=== PATIENT | female | born 1970 | race American Indian/Alaskan Native ===

== ENCOUNTER 2020-03-06 09:54 | Outpatient (CLI) | payer OTHER, SELFPAY ==
--- NOTE | 2020-03-06 10:09 | MM_ITS ---
WS: [id number] DIAGNOSTIC BILATERAL DIGITAL MAMMOGRAM WITH CAD HISTORY: 6 MO F/U RT BREAST CALCIFICATION COMPARISON: 08/18/2019, 02/23/2019, 08/17/2018, 02/17/2018 and 06/07/2017 TECHNIQUE: Bilateral craniocaudad, mediolateral oblique, and mediolateral views are submitted. Magnif ication views RIGHT CC and MLO. Computer aided detection utilized. Breast composition: The breasts are extremely dense, which lowers the sensitivity of mammography. Num erous calcifications are noted within each breast. Calcifications in the inferior medial RIGHT breast undergoing diagnostic imaging over several years. These calcifications although clustered are very s imilar in appearance to 2017. No increase in number or size of the calcifications and no soft tissue mass. There are additional asymmetries and nodules throughout both breasts which are stable. MM/[place] [id number] IMPRESSION: BI-RADS: 2-Benign FOLLOW UP: 1 Year Follow-up Calcifications in the inferomedial RIGHT breast have been stable over several y ears. Patient to return to annual screening mammogram. On the annual mammogram if these calcifications appear to increase in size or number additional imaging will be recommended at that time.
== END 2020-03-06 09:55 | disposition home or self-care (01) ==
LOC: RADSHAW 09:59
PROVIDERS: PCP Family Medicine; Visit Provider Family Medicine
DX: R92.1 Mammographic calcification found on diagnostic imaging of breast (principal)
CPT/HCPCS: 77066

== ENCOUNTER → 2020-09-08 13:59 | Outpatient (BNVA) | payer OTHER, SELFPAY | PROVIDERS: PCP Family Medicine; Visit Provider Family Medicine | DX: Z20.828 Contact with and (suspected) exposure to other viral communicable diseases (principal) | CPT/HCPCS: 87635 ==

== ENCOUNTER → 2021-02-05 10:50 | Outpatient (BNVA) | payer OTHER, SELFPAY | PROVIDERS: PCP Family Medicine; Visit Provider Obstetrics & Gynecology | DX: Z12.4 Encounter for screening for malignant neoplasm of cervix (principal); N81.4 Uterovaginal prolapse, unspecified | CPT/HCPCS: 88175 ==

== ENCOUNTER 2021-04-23 13:08 | Outpatient (CLI) | payer OTHER, SELFPAY ==
--- NOTE | 2021-04-23 13:17 | MM_ITS ---
WS: [id number] BILATERAL DIGITAL SCREENING MAMMOGRAPHY WITH CAD CLINICAL INFORMATION: SCREENING HISTORY: Screening mammogram. No current complaints. COMPARISON: March 06, 2020 TECHNIQUE: Bilateral CC and MLO views. FINDINGS: The breasts are composed of heterogeneous fibroglandular density tissue, which can limit the detectio n of small underlying mass lesions. Punctate and lucent centered calcifications. Clustered calcificat ions. Biopsy marker right breast. No suspicious mass, asymmetry, calcifications, or architectural dis tortion. No evidence of malignancy. MM/[place] [id number] IMPRESSION: BI-RADS: 2-Benign FOLLOW UP: 1 Year Follow-up Recommend return to annual screening mammography.
== END 2021-04-23 13:09 | disposition home or self-care (01) ==
LOC: RADSHAW 13:10
PROVIDERS: PCP Family Medicine; Visit Provider Family Medicine
DX: Z12.31 Encounter for screening mammogram for malignant neoplasm of breast (principal)
CPT/HCPCS: 77067

== ENCOUNTER 2021-07-29 11:00 | Outpatient (CLI) | payer OTHER, SELFPAY ==
--- NOTE | 2021-07-29 | CT_ITS ---
WS: [id number] CT ABDOMEN AND PELVIS WITH CONTRAST HISTORY: LLQ PAIN TECHNIQUE: Imaging performed of the abdomen and pelvis with IV contrast. Single phase imaging of the abdomen. Coronal and sagittal reformats are submitted. All CT scans at [facility] use at thad st one of these dose optimization techniques: automated exposure control; mA and/or kV adjustment per patient size (includes targeted exams where dose is matched to clinical indication); or iterative re construction. IV CONTRAST: Omnipaque 300; 95 mL IV. Oral contrast: Yes. DLP: 1090.4 mGycm COMPARISON: 03/20/2019 Lower thorax: Lung bases are clear. Heart is normal size. Moderate-sized hiatal hernia. Liver/biliary system: Normal size liver. No bile duct dilatation. 8 mm low-attenuation nodule in the inferior RIGHT hepatic lobe is stable. Additional similar hypoechoic nodule in the LEFT lobe is proba sima a small cyst also. Gallbladder: Status post cholecystectomy. Pancreas: Normal size pancreas and pancreatic duct. No adjacent inflammation. Spleen: Normal size spleen. No mass or infarct. Adrenal glands: Normal. Right kidney: Normal. Left kidney: Normal. Aorta: Normal. Lymphadenopathy: None. Free fluid: None. GI tract: Status post gastric bypass. Multiple surgical sutures are noted within the LEFT upper abdom en. Prior appendectomy. Diffuse moderate fecal retention. No mucosal thickening or edema. No obstruct ion. Abdominal wall: Unremarkable abdominal wall. No hernia. Pelvis: Prior RIGHT oophorectomy. Uterus is midline. LEFT ovary is small caliber very difficult to vi sualize. No fat stranding or adenopathy. Bones: Unremarkable. CT/CT abdomen pelvis w con* [id number] IMPRESSION: 1. No acute abdominal or pelvic abnormalities are identified. 2. Prior appendectomy and RIGHT oophorectomy. 3. Prior gastric bypass. 4. Diffuse moderate constipation and fecal retention. 5. No free fluid or free air.
[2021-07-29] MEDS: iohexol 300 mg/mL 100 mL Btl IV (13:06)
== END 2021-07-29 11:01 | disposition home or self-care (01) ==
PROVIDERS: PCP Family Medicine; Visit Provider Family Medicine
DX: Q42.8 Congenital absence, atresia and stenosis of other parts of large intestine (principal); Z90.721 Acquired absence of ovaries, unilateral; Z98.84 Bariatric surgery status; K59.00 Constipation, unspecified
CPT/HCPCS: 74177; Q9967

== ENCOUNTER → 2021-08-28 16:35 | Outpatient (BNVA) | payer OTHER, SELFPAY | PROVIDERS: PCP Family Medicine; Visit Provider Obstetrics & Gynecology | DX: Z01.818 Encounter for other preprocedural examination (principal); Z20.822 Contact with and (suspected) exposure to COVID-19; N81.4 Uterovaginal prolapse, unspecified; N39.3 Stress incontinence (female) (male) | CPT/HCPCS: 87635 ==

== ENCOUNTER 2021-09-02 08:57 | Observation (INO) | payer OTHER, SELFPAY ==
[2021-09-01 13:14] VITALS: BMI 26.1
[2021-09-02] VITALS (20 sets, daily range): BP systolic 86–118; BP diastolic 53–74; PULSE 53–110; RESP 15–22; TEMP 36.3–36.9; O2SAT 96–100; BMI 24.5
[2021-09-02] MEDS: phenazopyridine 100 mg Tablet 200 MG PO (06:46)
[2021-09-02] MEDS: CELEcoxib 200 mg Capsule 400 MG PO (06:46)
[2021-09-02] MEDS: gabapentin 300 mg Capsule PO (06:46)
[2021-09-02] MEDS: ketorolac 30 mg/mL INJ IVP ×3 (06:47→21:22)
[2021-09-02] MEDS: acetaminophen 1,000 MG/100 ML PIGGYBACK 400 MG IV (06:49)
[2021-09-02] MEDS: sodium chloride 0.9% 1,000 ML 30 ML IV (06:50)
[2021-09-02 06:53] LABS: Basophils % 1.3 %; Eosinophils # 0.2 10^3/uL (0.0-0.8); Eosinophils % 5.5 %; Hematocrit 36.8 % (37.0-47.0); Hemoglobin 12.5 g/dL (11.5-15.3); Lymphocytes # 1.4 10^3/uL (0.8-4.8); Lymphocytes % 45.3 %; Mean Corpuscular Hemoglobin 33.2 pg (28.0-34.0); Mean Corpuscular Volume 97.6 fl (81-99); Mean Platelet Volume 9.4 fL (7.4-10.4); Monocytes # 0.3 10^3/uL (0.2-0.9); Monocytes % 8.4 %; Neutrophils # 1.22 10^3/uL (1.8-7.7); Neutrophils % 39.5 %; Nucleated Red Blood Cells % 0 %; Platelet Count 233 10^3/cmm (130-400); Red Blood Count 3.77 10^6/uL (4.1-5.3); Red Cell Distribution Width 12.2 % (12.1-15.1); White Blood Count 3.1 10^3/uL (4.0-10.0)
[2021-09-02] MEDS: scopolamine 1.5 Patch 1 PATCH TRANSDERMA (07:00)
--- NOTE | 2021-09-02 07:00 | P.ANESASSM_ITS ---
Pre-Anesthetic Assessment Pre-Anesthetic Assessment: Height/Weight: Height 1.68 m Weight 73.482 kg Temp Pulse Resp BP Pulse Ox 98.4 F 70 16 106/74 99 09/02/21 06:26 09/02/21 06:26 09/02/21 06:26 09/02/21 06:26 09/02/21 06:26 Preop Diagnosis: uterine prolapse, stress incontinence Proposed Procedure: Operation Date: 09/02/21 07:00 Proposed Procedures p Laparoscopic Assist Vaginal Hysterectomy 55477 N81.4(Not Applicable) - Erin Hernandez MD s Sling(Not Applicable) - Erin Hernandez MD s Laparoscopic Oophorectomy(Left) - Erin Hernandez MD s Possible Anterior Repair(Not Applicable) - Erin Hernandez MD s Possible Posterior Repair(Not Applicable) - Erin Hernandez MD Was Beta Reinaldo taken within 24 hours: N/A Was Clonidine taken within 24 hours: N/A Last intake: Intake Last Liquid Date 09/01/21 Last Liquid Time 23:00 Last Solid Date 09/01/21 Last Solid Time 22:30 Social: Social History: No alcohol and No tobacco Exam: Pre-Anes Outpt Exam: alert, oriented x 3, clear to auscultation bilaterally and regular rate & rhythm Airway: Submandibular: WNL Cervical ROM: WNL MP: 1 Dentition: Full History/ROS: No significant history except as noted Pulmonary: Pulmonary: None reported CV/HEM: CV/HEM: None reported : Comments: Prolapse Hepatic: Hepatic: None reported GI: GI: GERD Metabolic: Comments: s/p gastric bypass Musc/skel: Musc/skel: None reported Neuropsych: Comments: Migraine Anesthetic Plan: ASA status: 2 Anesthesia: Anesthesia Evaluation and General Risk of > 500 ml blood loss (7ml/kg in children): No Meds/Allergies Current Medications: Current Medications Generic Name Dose Route Start Last Admin Trade Name Freq PRN Reason Stop Dose Admin Sodium Chloride 1,000 mls @ 30 ml s/hr 09/02/21 06:30 09/02/21 06:50 Sodium Chloride 0.9% IV 09/03/21 06:29 30 mls/hr .Q24H EITAN Administration PFSH Anesthesia PFSH: Medical History History of anemia History of blood clots History of gastroesophageal reflux (GERD) History of migraine headaches Surgical History History of appendectomy History of cholecystectomy History of gastric bypass History of oophorectomy, unilateral right, 2019 History of unilateral salpingectomy left, 2019 Family History Grandmother Cancer Paternal--breast cancer and possible uterine cancer Grandfather Myocardial infarct Brother Afib Hypercholesteremia Family/Other Cancer Maternal Aunt stomach cancer Family/Other Cancer Sister Diabetes Hypercholesteremia Thyroid disease hyperthyroidism Father Hypercholesteremia Diabetes borderline diabetic--controlled through diet Mother Stroke Denies family history of Ovarian cyst Clotting disorder Chronic kidney disease (CKD) Bleeding disorder Hypertension Data Anesthesia CBC & Chem 7: 09/02/21 06:36 09/02/21 06:36 Other Labs: Laboratory Results - last 48 hr 09/02/21 06:36 WBC 3.1 L RBC 3.77 L Hgb 12.5 Hct 36.8 L MCV 97.6 MCH 33.2 MCHC 34.0 RDW 12.2 Plt Count 233 MPV 9.4 Neut % (Auto) 39.5 Lymph % (Auto) 45.3 [place] % (Auto) 8.4 Eos % (Auto) 5.5 Baso % (Auto) 1.3 Neut # (Auto) 1.22 L Lymph # (Auto) 1.4 [place] # (Auto) 0.3 Eos # (Auto) 0.2 Baso # (Auto) 0.0 Nucleated RBC % (auto) 0 Nucleated RBCs # 0.0 Cardiac Studies: No Data to Display
--- NOTE | 2021-09-02 07:01 | W.PM.OPSUD ---
Surgery/Procedure H&P Update DATE OF PROCEDURE: September 02, 2021 DATE H&P PERFORMED: 08/28/21 H&P UPDATE INFORMATION: I have reviewed H&P completed within last 30 days, I have examined patient prior to procedure and No changes to prior documentation PREOP DIAGNOSIS: uterine prolapse, stress incontinence PLANNED PROCEDURE: Operation Date: 09/02/21 07:00 Proposed Procedures p Laparoscopic Assist Vaginal Hysterectomy 79635 N81.4(Not Applicable) - Erin Hernandez MD s Sling(Not Applicable) - Erin Hernandez MD s Laparoscopic Oophorectomy(Left) - Erin Hernandez MD s Possible Anterior Repair(Not Applicable) - Erin Hernandez MD s Possible Posterior Repair(Not Applicable) - Erin Hernandez MD Related Problem List Diagnoses (1) Stress incontinence: (2) Cystocele: (3) Uterine prolapse:
[2021-09-02 07:11] LABS: Anion Gap 15.7 (5-19); Blood Urea Nitrogen 12 mg/dL (6-20); Calcium 8.8 mg/dL (8.5-10.5); Carbon Dioxide 25 mmol/L (22-29); Chloride 105 mmol/L (98-107); Glucose 95 mg/dL (65-115); Osmolality Calculated 294 mOsm/kg (285-295); Potassium 3.7 mmol/L (3.5-5.1); Sodium 142 mmol/L (136-145)
[2021-09-02] MEDS: vasopressin 20 unit/mL INJ INJECTION (08:44)
--- NOTE | 2021-09-02 09:07 | PM.OP ---
Operative Report Date of procedure: September 02, 2021 Pre-op Diagnosis: uterine prolapse, stress incontinence Post-op diagnosis: same Post-op Diagnosis: no stress incontinence noted Procedure Done: laparoscopic assisted vaginal hysterectomy with left oophorectomy and cystoscopy Specimens removed/disposition: uterus and left ovary to pathology Anesthesia: General Estimated blood loss (mL): 25 IV fluids (mL): 1,400 Urine output (mL): 200 Complications: none Findings: after hysterectomy. No cystocele or rectocele noted. bladder filled with water from cystoscopy and no leak with pressure. Condition: stable Disposition: floor Procedure: The patient was taken to the operating room where general anesthesia was administered and found to be adequate. She was prepped and draped in the normal sterile fashion in the dorsal lithotomy position in [facility]. A Wong catheter was placed. A weighted speculum was placed into the vagina and the anterior lip of the cervix was grasped with a single tooth tenaculum. The Zumi uterine manipulator could not be placed due to a previous endometrial ablation. A sponge stick was placed instead. The gloves were changed and attention was turned to the abdomen. A 5 mm infraumbilical incision was made. Using a 5 mm port with the camera, the port was placed into the abdomen. The abdomen was insufflated. Two low, lateral 5 mm ports were placed on the left and right under direct visualization from the camera. The uterus was elevated. Using the laparoscopic cautery, The infundibulo pelvic ligament on the left as well as the round ligaments bilaterally were ligated. Attention was then turned to the vaginal portion of the procedure. The weighted speculum was placed into the vagina. The zumi manipulator was removed. The single tooth tenaculum was removed and replaced with the louis's tenaculum. 10 mL of dilute Pitressin was injected at the vesicovaginal junction. A circumferential incision was made at the vesicovaginal junction and the vaginal mucosa reflected cephalad. The posterior peritoneum was entered sharply with the Metzenbaum scissors and the long weighted speculum replaced. Using the Mario clamps the uterosacral ligaments were clamped cut and suture-ligated. The anterior peritoneum was entered sharply with the metzenbaum scissors. Then sequentially the uterine arteries and cardinal ligaments were clamped cut and suture-ligated. A single-tooth tenaculum was used to deliver the uterus. The remaining segement of the utero-ovarian ligaments were clamped cut and suture-ligated bilaterally and the specimen was removed. There was good hemostasis with only mild bleeding from the cuff. The peritoneum was closed with a pursestring using 2-0 Vicryl. The vaginal cuff was closed with 0 Vicryl in a running locked pattern incorporating the uterosacral ligaments into the lateral aspects of the vaginal cuff. The Wong catheter was removed and the cystoscope advanced into the bladder. The patient was given pyridium and bilateral spill was noted. There were no injuries or deficits noted in the bladder. The cystoscope was removed and the Wong was replaced. Vaginal packing was placed for good hemostasis. The patient tolerated the procedure well. Sponge lap and needle counts were correct x3. She was taken to the recovery room in stable condition.
--- NOTE | 2021-09-02 09:22 | SUR.PHASEI ---
PT SLEEPS QUIETLY UNLESS AWAKENED PT C/O OF (CRAMPING) TO LOWER ABD PT INFORMED OF VAGINAL PACKING AND RONQUILLO CATHETER, WARM BLANKET TO ABD FOR COMFORT, PT QUICKLY BACK TO SLEEP VSS IV PATENT MONITOR SR, PT ABD SOFT WITH 3 SITES D/I RONQUILLO TO DD WITH STATLOCK TO RT THIGH, DK YELLOW URINE TO TUBING AND BAG.
--- NOTE | 2021-09-02 09:50 | PC.NURSE ---
Patient brought to OB floor by OR staff via bed.
[2021-09-02] MEDS: dextrose 5%-lactated ringers 1,000 ML 125 ML IV ×2 (10:01→18:09)
--- NOTE | 2021-09-02 10:05 | ANE.PACU2 ---
Inpatient post-anesthesia follow up: Airway intact: Yes Vital signs: Temperature 97.6 F Pulse Rate 73 Respiratory Rate 16 Blood Pressure 106/74 Pulse Oximetry 100 Oxygen Delivery Me thod Room Air Oxygen Flow Rate Fraction of Inspir ed Oxygen Hydration adequate: Yes Nausea and vomiting: No Pain level: 3 Mental status: Baseline
[2021-09-02] MEDS: HYDROmorphone 1 mg/mL INJ 1 mL 0.5 MG IVP (10:27)
[2021-09-02 11:31] LABS: Hematocrit 36.5 % (37.0-47.0); Hemoglobin 12.1 g/dL (11.5-15.3); Mean Corpuscular HGB Conc 33.2 g/dL (30.0-36.0); Mean Corpuscular Hemoglobin 33.5 pg (28.0-34.0); Mean Corpuscular Volume 101.1 fl (81-99); Mean Platelet Volume 9.3 fL (7.4-10.4); Platelet Count 188 10^3/cmm (130-400); Red Blood Count 3.61 10^6/uL (4.1-5.3); Red Cell Distribution Width 12.3 % (12.1-15.1)
[2021-09-02] MEDS: HYDROcodone-acetaminophen 5-325 mg Tablet PO ×2 (12:00→18:04)
[2021-09-02] MEDS: docusate sodium 100 mg Capsule PO (18:05)
[2021-09-03] MEDS: HYDROcodone-acetaminophen 5-325 mg Tablet PO ×2 (00:23→11:10)
[2021-09-03] MEDS: dextrose 5%-lactated ringers 1,000 ML 125 ML IV (02:16)
[2021-09-03 04:13] VITALS: RESP 16; O2SAT 98
[2021-09-03] MEDS: HYDROmorphone 1 mg/mL INJ 1 mL 1.5 MG IVP (04:13)
[2021-09-03 04:20] VITALS: BP 83/50; PULSE 64; RESP 17; TEMP 36.8; O2SAT 94
[2021-09-03 04:29] LABS: Hematocrit 32.2 % (37.0-47.0); Hemoglobin 10.7 g/dL (11.5-15.3); Mean Corpuscular HGB Conc 33.2 g/dL (30.0-36.0); Mean Corpuscular Hemoglobin 32.9 pg (28.0-34.0); Mean Corpuscular Volume 99.1 fl (81-99); Mean Platelet Volume 9.2 fL (7.4-10.4); Platelet Count 160 10^3/cmm (130-400); Red Blood Count 3.25 10^6/uL (4.1-5.3); Red Cell Distribution Width 12.4 % (12.1-15.1)
[2021-09-03 06:00] LABS: Anion Gap 12.9 (5-19); Blood Urea Nitrogen 4 mg/dL (6-20); Carbon Dioxide 23 mmol/L (22-29); Chloride 108 mmol/L (98-107); Creatinine Clr Calc Pharmacy 140.3331; Glomerular Filtration Rate 129.6 mL/min (90-130); Glucose 129 mg/dL (65-115); Osmolality Calculated 289 mOsm/kg (285-295); Potassium 3.9 mmol/L (3.5-5.1); Sodium 140 mmol/L (136-145)
--- NOTE | 2021-09-03 09:27 | P.DS_ITS ---
Discharge Providers Date of Admission: 09/02/21 08:57 Date of Discharge: September 03, 2021 Attending Provider at Admission: Erin Hernandez MD Attending Provider at Discharge: Erin Hernandez MD Primary Care Provider: Arnold Beckham MD Diagnoses at Discharge Discharge Diagnosis (1) Stress incontinence: Status: Acute (2) Cystocele: Status: Acute (3) Uterine prolapse: Status: Acute Reason for Visit Reason for Visit: Uterine prolapse Hospital Course Hospital Course The patient was admitted for surgery. She did well postoperatively and was ready for discharge on day #1 Physical Exam Narrative: EXAM NARRATIVE: The patient is doing well this morning. No concerns. Packing has been removed Const: COMMON NORMALS: no acute distress, average body habitus, patient oriented x3, no limitations, healthy appearing, alert and well nourished GENERAL APPEARANCE: cooperative, comfortable and well kempt ORIENTATION/CONSCIOUSNESS: Yes awake, Yes oriented to person, Yes oriented to place and Yes oriented to time Resp: COMMON NORMALS: normal respiratory effort EFFORT & INSPECTION: Yes able to speak in complete sentences GI: COMMON NORMALS: Soft to palpation and non-tender PALPATION: Yes Soft to palpation : COMMON NORMALS: Yes normal external appearance and Yes normal appearance of the vagina Extremity: COMMON NORMALS: no calf tenderness Neuro: COMMON NORMALS: patient oriented x3 SENSORIUM/ORIENTATION: Yes alert, Yes oriented to person, Yes oriented to place and Yes oriented to time Psych: COMMON NORMALS: mental status grossly normal, Normal thought process present, cooperative, normal affect and speech normal APPEARANCE: Yes grossly normal and Yes well kempt ATTITUDE: Yes calm and Yes engaged ACTIVITY/MOTOR BEHAVIOR: Yes appropriate eye contact SPEECH: Yes normal speech THOUGHT PROCESS: Normal thought process present Urinary Catheter Management^: Wong: Cath Placed During This Visit: yes, but has since been removed by the nurse Reason for Continuing Indwelling Catheter: Perioperative Use in Selected Surgeries Urinary Catheter Date of Insertion: 09/02/21 Urinary Catheter Time of Insertion: 07:30 Date Urinary Catheter Removed: 09/03/21 Time Urinary Catheter Discontinued: 06:15 Discharge Data Data Completed and Pending: Pending at discharge Category Date Time Status ES surgery / GI i mages Routine Exams 09/02/21 06:39 Taken Urine Culture Rou brian Lab 09/02/21 11:20 Results Pathology: Surgic al [PTH] Routine Pth 09/02/21 08:58 Received Labs from last 24 hours 09/03/21 09/03/21 09/02/21 04:30 04:10 11:20 WBC 5.0 8.0 RBC 3.25 L 3.61 L Hgb 10.7 L 12.1 Hct 32.2 L 36.5 L MCV 99.1 H 101.1 H MCH 32.9 33.5 MCHC 33.2 33.2 RDW 12.4 12.3 Plt Count 160 188 MPV 9.2 9.3 Sodium 140 Potassium 3.9 Chloride 108 H Carbon Dioxide 23 Anion Gap 12.9 BUN 4 L Creatinine 0.5 GFR Calculation 129.6 Glucose 129 H Calculated Osmolal ity 289 Calcium 8.0 L Vitals: Last Vital Signs Temp 98.2 F 09/03/21 04:20 Pulse 64 09/03/21 04:20 Resp 17 09/03/21 04:20 BP 83/50 09/03/21 04:20 Pulse Ox 94 09/03/21 04:20 Discharge Plan Discharge Patient Disposition: Home Condition: Stable Prescriptions: New docusate sodium 100 mg Capsule 100 mg PO BID Qty: 60 RF: 0 ibuprofen 800 mg Tablet 800 mg PO Q8H Qty: 30 RF: 0 hydrocodone-acetaminophen 5-325 mg Tablet 2 tab PO Q6H PRN (Reason: Moderate To Severe Pain) Qty: 30 RF: 0 Continued hydroxyzine HCl 25 mg tablet 25 mg PO BID PRN (Reason: Allergy Symptoms) RF: 0 Zyrtec 10 mg capsule 10 mg PO DAILY PRN (Reason: Runny Nose) RF: 0 magnesium 30 mg tablet 30 mg PO DAILY RF: 0 pantoprazole 40 mg tablet,delayed release (DR/EC) 40 mg PO DAILY RF: 0 calcium carbonate [Calcium 500] 500 mg calcium (1,250 mg) tablet 1,000 mg PO DAILY RF: 0 ascorbate calcium (vitamin C) 500 mg tablet 500 mg PO DAILY RF: 0 polyethylene glycol 3350 [Miralax] 17 gram/dose powder 17 g PO DAILY RF: 0 clobetasol 0.05 % ointment 1 applic topical BID 14 Days Qty: 60 RF: 3 triamcinolone acetonide 0.1 % ointment 1 applic topical BID Qty: 80 RF: 2 Discharge Orders: Discharge Order (Routine); Ordered 09/03/21 Ordered By: Erin Hernandez Patient Instructions: Opioid Safety Discharge Attestations Time Spent in Discharge Care*: less than 30 min Quality Metrics Clinical Quality Measures During this hospital stay, did patient experience: None Coding Level of Care Code Acute Chg [facility] note Diagnoses Stress incontinence N39.3 Cystocele Uterine prolapse N81.4
[2021-09-03] MEDS: pantoprazole DR 40 mg Tablet PO (09:57)
[2021-09-03] MEDS: docusate sodium 100 mg Capsule PO (09:58)
[2021-09-03] MEDS: ibuprofen 800 mg tablet PO (09:58)
[2021-09-03 11:18] VITALS: PULSE 79; RESP 16; TEMP 36.8
[2021-09-03 12:00] VITALS: BP 108/64; PULSE 79; RESP 16; TEMP 36.8; O2SAT 97
== END 2021-09-03 12:35 | disposition home or self-care (01) ==
LOC: OBGYN 08:57
PROVIDERS: Admitting Provider Obstetrics & Gynecology; PCP Family Medicine; Visit Provider Obstetrics & Gynecology
PROC: 0UT9FZZ Resection of Uterus, Via Natural or Artificial Opening With Percutaneous Endoscopic Assistance (ICD-10-PCS; CPT 58552; principal; 2021-09-02 07:00)
PROC: (CPT 58661; 2021-09-02 07:00)
DX: N81.4 Uterovaginal prolapse, unspecified (principal); N39.3 Stress incontinence (female) (male); K21.9 Gastro-esophageal reflux disease without esophagitis; Z98.84 Bariatric surgery status
CPT/HCPCS: 58552; 36415; 80048; 85025; 85027; 86850; 86900; 87086; 88307; G0378; J0690; J1100; J1170; J1200; J1885; J2250; J2270; J2405; J2704; J2710; J3010; J3490; J7030

== ENCOUNTER → 2021-10-13 09:54 | Outpatient (BNVA) | payer OTHER, SELFPAY | PROVIDERS: PCP Family Medicine; Visit Provider Obstetrics & Gynecology | DX: N89.8 Other specified noninflammatory disorders of vagina (principal); Z98.890 Other specified postprocedural states | CPT/HCPCS: 87481; 87512; 87798; 87799 ==

== ENCOUNTER 2022-06-12 14:51 | Outpatient (CLI) | payer OTHER, SELFPAY ==
--- NOTE | 2022-06-12 15:02 | MM_ITS ---
WS: [id number] BILATERAL SCREENING DIGITAL TOMOSYNTHESIS MAMMOGRAM WITH CAD HISTORY: SCREENING COMPARISON: 04/23/2021 and 03/06/2020 Bilateral CC and MLO views with tomosynthesis and synthetic mammography submitted. Computer aided det ection analyzed. Breast composition: The breasts are heterogeneously dense, which may obscure small masses. No suspici ous masses, microcalcifications or architectural distortion. Scattered asymmetries and calcifications within each breast. Stable over several prior years. MM/[place] [id number] IMPRESSION: BI-RADS: 2-Benign FOLLOW UP: 1 Year Follow-up
== END 2022-06-12 14:52 | disposition home or self-care (01) ==
LOC: RAD 14:54
PROVIDERS: PCP Family Medicine; Visit Provider Family Medicine
DX: Z12.31 Encounter for screening mammogram for malignant neoplasm of breast (principal)
CPT/HCPCS: 77063; 77067

== ENCOUNTER 2022-08-12 09:30 | Outpatient (RCR) | payer OTHER, SELFPAY ==
[2022-08-12] MEDS: sodium chloride 0.9% 1,000 ML 500 ML IV (10:35)
== END 2022-08-12 23:59 | disposition home or self-care (01) ==
LOC: ONCMED 09:30
PROVIDERS: PCP Family Medicine; Visit Provider Family Medicine
DX: D70.9 Neutropenia, unspecified (principal); M54.50 Low back pain, unspecified; Z79.899 Other long term (current) drug therapy
CPT/HCPCS: 96365; 96366; 97110; 97161; J7030

== ENCOUNTER 2023-08-09 07:45 | Outpatient (CLI) | payer OTHER, SELFPAY ==
--- NOTE | 2023-08-09 07:57 | MM_ITS ---
WS: [id number] SCREENING DIGITAL BREAST TOMOSYNTHESIS MAMMOGRAM WITH CAD HISTORY: SCREENING COMPARISON: 06/12/2022 and 04/23/2021 Bilateral CC and MLO with tomosynthesis and synthetic mammography submitted. Computer aided detection analyzed. Breast composition: The breasts are heterogeneously dense, which may obscure small masses. Small clus ter of calcifications in the lateral LEFT breast near 3:00. These calcifications are posterior and of slightly increased in size over several years. There are additional bilateral benign calcifications. IMPRESSION: MM/[place] [id number] BI-RADS: 0-Incomplete: Need additional imaging evaluation FOLLOW UP: Need Additional Imaging LEFT BREAST: Magnification views of suspicious calcification CC and MLO. Cristofer Ware
== END 2023-08-09 07:46 | disposition home or self-care (01) ==
LOC: RAD 07:46
PROVIDERS: PCP Family Medicine; Visit Provider Family Medicine
DX: Z12.31 Encounter for screening mammogram for malignant neoplasm of breast (principal)
CPT/HCPCS: 77063; 77067

== ENCOUNTER 2023-09-20 13:20 | Outpatient (CLI) | payer OTHER, SELFPAY ==
--- NOTE | 2023-09-20 14:39 | US_ITS ---
WS: [id number] ULTRASOUND THYROID TECHNIQUE: Ultrasound of the thyroid. CLINICAL INFORMATION: THYROID NODULE COMPARISON: Ultrasound 07/02/2022 and 2020. FINDINGS: Thyroid: Right and left thyroid lobes are normal in size and echotexture. Bilateral mainly subcentimeter thyroid nodules similar to previous. Incidental thyroid cyst and subce ntimeter colloid cysts. No suspicious lesions to target for biopsy. Nodules overall are stable compar ed to 2021. Largest complex cystic nodule RIGHT mid thyroid measuring 9.8 x 6.9 x 11.0 mm unchanged. Largest solid nodule LEFT mid thyroid measuring 6.1 x 5.4 x 10.0 mm unchanged. Right thyroid lobe: 4.4 cm x 1.5 cm x 1.6 cm Left thyroid lobe: 4.7 cm x 1.6 cm x 1.6 cm. Isthmus: 0.2 mm. Cervical lymphadenopathy: None. IMPRESSION: 1. Overall no significant changes compared to previous. 2. Largest RIGHT and left-sided nodules described above. Recommend continued annual surveillance. 3. Additional incidental benign cysts and colloid cysts similar to previous. 4. Previously described increased vascularity appears slightly improved. 5. No other suspicious findings.
== END 2023-09-20 13:21 | disposition home or self-care (01) ==
LOC: RAD 13:21
PROVIDERS: PCP Family Medicine; Visit Provider Family Medicine
DX: E04.1 Nontoxic single thyroid nodule (principal)
CPT/HCPCS: 76536

== ENCOUNTER 2023-09-23 15:45 | Oncology outpatient (recurring) (ONCR) | payer OTHER, SELFPAY ==
[2023-09-16] MEDS: ferric carboxy (IVPB) 750 MG in sodium chloride 0.9% (100 ml) 100 ML 345 MG IV (14:10)
[2023-09-16 14:49] VITALS: BP 101/65; PULSE 64; RESP 16; TEMP 36.8; O2SAT 99
[2023-09-23 16:01] VITALS: BP 104/62; PULSE 75; RESP 16; TEMP 36.4; O2SAT 96
[2023-09-23] MEDS: ferric carboxy (IVPB) 750 MG in sodium chloride 0.9% (100 ml) 100 ML 345 MG IV (16:08)
[2023-09-23 16:36] VITALS: PULSE 73; RESP 16; TEMP 36.4
[2023-09-23 16:38] VITALS: BP 98/62; PULSE 73; RESP 16; TEMP 36.6; O2SAT 97
== END 2023-10-13 23:59 | disposition home or self-care (01) ==
PROVIDERS: PCP Family Medicine; Visit Provider Family Medicine
DX: D50.9 Iron deficiency anemia, unspecified (principal); Z53.9 Procedure and treatment not carried out, unspecified reason
CPT/HCPCS: 96365; J1439

== ENCOUNTER 2023-09-27 07:58 | Outpatient (CLI) | payer OTHER, SELFPAY ==
--- NOTE | 2023-09-27 08:24 | MM_ITS ---
WS: [id number] ADDITIONAL VIEWS LEFT MAMMOGRAM with tomosynthesis. LEFT BREAST ULTRASOUND HISTORY: INCONCLUSIVE MAMMO COMPARISON: 08/09/2023, 06/12/2022, 04/23/2021 and 03/06/2020 LEFT MAMMOGRAM: Magnification views and true ML with tomosynthesis and sympathetic mammography. Cluster of calcifications is better visualized in the upper outer quadrant of the LEFT breast at a mi d to posterior depth. There are several calcifications which appear slightly more prominent and sligh tly more pleomorphic. There is no associated mass. There is additional partially obscured nodules in the anterior LEFT breast for which ultrasound will be obtained. LEFT BREAST ULTRASOUND 2-D and color Doppler imaging submitted. Ultrasound directed to the anterior breast. There are several complex cysts within the LEFT breast. T here is through transmission. The largest measures 8 x 8 x 7 mm. Similar cysts were noted in this loc ation on a prior study. IMPRESSION: MM/[id number] BI-RADS: 4-Suspicious Finding-Biopsy Should Be Considered FOLLOW UP: Biopsy Recommended Stereotactic biopsy recommended of the calcifications LEFT breast upper outer q uadrant.
--- NOTE | 2023-09-27 09:36 | US_ITS ---
WS: [id number] ADDITIONAL VIEWS LEFT MAMMOGRAM with tomosynthesis. LEFT BREAST ULTRASOUND HISTORY: INCONCLUSIVE MAMMO COMPARISON: 08/09/2023, 06/12/2022, 04/23/2021 and 03/06/2020 LEFT MAMMOGRAM: Magnification views and true ML with tomosynthesis and sympathetic mammography. Cluster of calcifications is better visualized in the upper outer quadrant of the LEFT breast at a mi d to posterior depth. There are several calcifications which appear slightly more prominent and sligh tly more pleomorphic. There is no associated mass. There is additional partially obscured nodules in the anterior LEFT breast for which ultrasound will be obtained. LEFT BREAST ULTRASOUND 2-D and color Doppler imaging submitted. Ultrasound directed to the anterior breast. There are several complex cysts within the LEFT breast. T here is through transmission. The largest measures 8 x 8 x 7 mm. Similar cysts were noted in this loc ation on a prior study. IMPRESSION: US/US breast LT limited* [id number] BI-RADS: 4-Suspicious Finding-Biopsy Should Be Considered FOLLOW UP: Biopsy Recommended Stereotactic biopsy recommended of the calcifications LEFT breast upper outer q uadrant.
== END 2023-09-27 07:59 | disposition home or self-care (01) ==
LOC: RAD 07:59
PROVIDERS: PCP Family Medicine; Visit Provider Family Medicine
DX: R92.2 Inconclusive mammogram (principal); R92.1 Mammographic calcification found on diagnostic imaging of breast
CPT/HCPCS: 76642; 77061; G0279

== ENCOUNTER 2023-11-02 12:20 | Outpatient (CLI) | payer OTHER, SELFPAY ==
--- NOTE | 2023-11-02 | MM_ITS ---
WS: [id number] STEREOTACTIC LEFT BREAST BIOPSY WITH VACUUM ASSISTANCE HISTORY: ABNORMAL MAMMO. Biopsy recommended for suspicious calcifications. COMPARISON: 09/27/2023, 08/09/2023 and 06/12/2022 Procedure, risks and complications are explained to the patient. Medications and prior imaging has be en reviewed. Cluster of calcifications LEFT breast is localized. Stereotactic imaging performed. Skin is cleansed with ChloraPrep. Superficial subcutaneous tissue anesthetized with 1% buffered lidocaine. Deeper soft tissues anesthetized with a combination of epinephrine and lidocaine. Calcifications are targeted st ereotactically. Small dermatome is made. Needle advanced into the breast and shown to be in appropria te position with relation to the calcifications. Multiple vacuum-assisted core biopsies were obtained . Post procedure imaging of the specimen revealed calcifications. The biopsy cavity is lavaged and then dried. The titanium clip is then inserted at the biopsy site. P ostprocedure imaging reveals clip is in good position. No complications. No significant bleeding. Severiano rile pressure bandages then applied. Post mammogram imaging reveals the biopsy clip did migrate medially approximately 2 cm from the biops y site. IMPRESSION: 1. Uncomplicated vacuum-assisted stereotactic biopsy of calcifications in the LEFT breast. Note: This biopsy was only a sampling of the calcifications that are present. MM/[place] [id number] PATHOLOGY: Benign breast parenchyma with mild fibrocystic changes including fib rosis, mild duct dictation sclerosis and adenosis and mild apocrine changes. In traductal microcalcifications are identified. No in situ or invasive malignancy . RECOMMENDATION: 6-month diagnostic mammogram follow-up with magnification views .
--- NOTE | 2023-11-02 | MM_ITS ---
WS: [id number] STEREOTACTIC LEFT BREAST BIOPSY WITH VACUUM ASSISTANCE HISTORY: ABNORMAL MAMMO. Biopsy recommended for suspicious calcifications. COMPARISON: 09/27/2023, 08/09/2023 and 06/12/2022 Procedure, risks and complications are explained to the patient. Medications and prior imaging has be en reviewed. Cluster of calcifications LEFT breast is localized. Stereotactic imaging performed. Skin is cleansed with ChloraPrep. Superficial subcutaneous tissue anesthetized with 1% buffered lidocaine. Deeper soft tissues anesthetized with a combination of epinephrine and lidocaine. Calcifications are targeted st ereotactically. Small dermatome is made. Needle advanced into the breast and shown to be in appropria te position with relation to the calcifications. Multiple vacuum-assisted core biopsies were obtained . Post procedure imaging of the specimen revealed calcifications. The biopsy cavity is lavaged and then dried. The titanium clip is then inserted at the biopsy site. P ostprocedure imaging reveals clip is in good position. No complications. No significant bleeding. Severiano rile pressure bandages then applied. Post mammogram imaging reveals the biopsy clip did migrate medially approximately 2 cm from the biops y site. IMPRESSION: 1. Uncomplicated vacuum-assisted stereotactic biopsy of calcifications in the LEFT breast. Note: This biopsy was only a sampling of the calcifications that are present. MM/[place] [id number] PATHOLOGY: Benign breast parenchyma with mild fibrocystic changes including fib rosis, mild duct dictation sclerosis and adenosis and mild apocrine changes. In traductal microcalcifications are identified. No in situ or invasive malignancy . RECOMMENDATION: 6-month diagnostic mammogram follow-up with magnification views .
--- NOTE | 2023-11-02 | MM_ITS ---
WS: [id number] STEREOTACTIC LEFT BREAST BIOPSY WITH VACUUM ASSISTANCE HISTORY: ABNORMAL MAMMO. Biopsy recommended for suspicious calcifications. COMPARISON: 09/27/2023, 08/09/2023 and 06/12/2022 Procedure, risks and complications are explained to the patient. Medications and prior imaging has be en reviewed. Cluster of calcifications LEFT breast is localized. Stereotactic imaging performed. Skin is cleansed with ChloraPrep. Superficial subcutaneous tissue anesthetized with 1% buffered lidocaine. Deeper soft tissues anesthetized with a combination of epinephrine and lidocaine. Calcifications are targeted st ereotactically. Small dermatome is made. Needle advanced into the breast and shown to be in appropria te position with relation to the calcifications. Multiple vacuum-assisted core biopsies were obtained . Post procedure imaging of the specimen revealed calcifications. The biopsy cavity is lavaged and then dried. The titanium clip is then inserted at the biopsy site. P ostprocedure imaging reveals clip is in good position. No complications. No significant bleeding. Severiano rile pressure bandages then applied. Post mammogram imaging reveals the biopsy clip did migrate medially approximately 2 cm from the biops y site. IMPRESSION: 1. Uncomplicated vacuum-assisted stereotactic biopsy of calcifications in the LEFT breast. Note: This biopsy was only a sampling of the calcifications that are present. MM/MM surgical specimen LT PATHOLOGY: Benign breast parenchyma with mild fibrocystic changes including fib rosis, mild duct dictation sclerosis and adenosis and mild apocrine changes. In traductal microcalcifications are identified. No in situ or invasive malignancy . RECOMMENDATION: 6-month diagnostic mammogram follow-up with magnification views .
== END 2023-11-02 12:21 | disposition home or self-care (01) ==
LOC: RAD 12:24
PROVIDERS: PCP Family Medicine; Visit Provider Family Medicine
DX: R92.1 Mammographic calcification found on diagnostic imaging of breast (principal)
CPT/HCPCS: 19081; 77061; 88305; G0279

== ENCOUNTER 2024-03-10 09:30 | Oncology outpatient (recurring) (ONCR) | payer OTHER, SELFPAY ==
[2024-03-10 10:20] LABS: Alanine Aminotransferase 17 U/L (0-33); Albumin Level 4.4 g/dL (3.5-5.2); Alkaline Phosphatase 58 U/L (35-105); Anion Gap 13.3 (5-19); Aspartate Amino Transferase 24 U/L (0-32); Blood Urea Nitrogen 12 mg/dL (6-20); Calcium 9.2 mg/dL (8.5-10.5); Carbon Dioxide 29 mmol/L (22-29); Chloride 102 mmol/L (98-107); Globulin 2.6 g/dL (1.3-4.6); Glomerular Filtration Rate 104.2 mL/min (90-130); Glucose 89 mg/dL (65-115); Osmolality Calculated 289 mOsm/kg (285-295); Potassium 4.3 mmol/L (3.5-5.1); Sodium 140 mmol/L (136-145); Total Bilirubin 0.4 mg/dL (0.15-1.2)
[2024-03-14 19:40] LABS: Quantiferon Nil 0.01 IU/mL; Quantiferon Plus TB1 0.01 IU/mL; Quantiferon Plus TB2 0.01 IU/mL; Quantiferon TB Gold NEGATIVE (NEGATIVE)
== END 2024-03-12 23:59 | disposition home or self-care (01) ==
PROVIDERS: Nurse Practitioner Family; PCP Family Medicine; Visit Provider Family Medicine
DX: L40.9 Psoriasis, unspecified
CPT/HCPCS: 36415; 80053; 86480

== ENCOUNTER 2024-05-04 14:40 | Outpatient (CLI) | payer OTHER, SELFPAY ==
--- NOTE | 2024-05-04 15:00 | MM_ITS ---
WS: [id number] DIAGNOSTIC LEFT DIGITAL TOMOSYNTHESIS MAMMOGRAPHY WITH CAD. HISTORY: ABNORMAL MAMMOGRAM, post biopsy follow-up. Reevaluate calcifications. COMPARISON: 11/02/2023, 09/27/2023, 08/09/2023 and 04/23/2021 Technique: CC, MLO and ML views. Magnification views CC and MLO. Breast composition: The breasts are heterogeneously dense, which may obscure small masses. Biopsy cli p migrated medially and slightly superior from the biopsy site. Reidentified is a cluster of calcific ations in the upper outer quadrant of the LEFT breast near 2:00. Some of these are lucent centered. T here has been no increase in size of the calcifications or number. No adverse changes. MM/[place] [id number] IMPRESSION: BI-RADS: 3-Probably Benign FOLLOW UP: 6 Month Follow-up Patient return to annual screening mammography.
== END 2024-05-04 14:41 | disposition home or self-care (01) ==
PROVIDERS: PCP Family Medicine; Visit Provider Family Medicine
DX: R92.8 Other abnormal and inconclusive findings on diagnostic imaging of breast (principal); R92.1 Mammographic calcification found on diagnostic imaging of breast; R92.333 Mammographic heterogeneous density, bilateral breasts
CPT/HCPCS: 77061; G0279

== ENCOUNTER 2024-06-19 14:54 | Oncology outpatient (recurring) (ONCR) | payer OTHER, SELFPAY ==
[2024-06-19 16:42] LABS: Iron 92 ug/dL (37-145); Percent Saturation 29.5 % (20-50); Total Iron Binding Capacity 311 mcg/dl; Unsaturated Iron Binding 219 ug/dL (112-347)
[2024-06-19 16:43] LABS: Alanine Aminotransferase 11 U/L (0-33); Albumin Level 4.6 g/dL (3.5-5.2); Alkaline Phosphatase 59 U/L (35-105); Aspartate Amino Transferase 22 U/L (0-32); Blood Urea Nitrogen 12 mg/dL (6-20); Calcium 9.2 mg/dL (8.5-10.5); Carbon Dioxide 27 mmol/L (22-29); Chloride 102 mmol/L (98-107); Chol HDL Ratio 1.79 mg/dL (0.0-4.40); Cholesterol 192 mg/dL (0-200); Ferritin 315 ng/mL (15-150); Globulin 2.7 g/dL (1.3-4.6); Glomerular Filtration Rate 86.9 mL/min (90-130); Glucose 93 mg/dL (65-115); HDL Cholesterol 107 mg/dL (60-100); LDL Cholesterol Calculated 67 mg/dL (50-129); LDL HDL Ratio 0.63 RATIO (0.00-3.22); Osmolality Calculated 285 mOsm/kg (285-295); Sodium 138 mmol/L (136-145); Total Bilirubin 0.2 mg/dL (0.15-1.2); Total Protein 7.3 g/dL (6.6-8.7); Triglycerides 91 mg/dL (0-150)
== END 2024-07-13 23:59 | disposition home or self-care (01) ==
PROVIDERS: PCP Family Medicine; Visit Provider Family Medicine
DX: D50.9 Iron deficiency anemia, unspecified (principal)
CPT/HCPCS: 36415; 80053; 80061; 82728; 83540; 83550

== ENCOUNTER 2024-08-24 16:01 | Outpatient (CLI) | payer OTHER, SELFPAY ==
--- NOTE | 2024-08-24 16:10 | XRR_ITS ---
PROCEDURE INFORMATION: Exam: XR Lumbosacral Spine Exam date and time: 08/24/2024 4:22 PM Age: 54 years old Clinical indication: Low back pain; Patient HX: Numbness and tingling in the lower back region for the last several months. PT states pain is mainly on the right side of the lower back. TECHNIQUE: Imaging protocol: Radiologic exam of the lumbosacral spine. Views: 2 or 3 views. COMPARISON: CR XR lumbar spine 2-3V* [id number] 06/26/2022 11:58 AM FINDINGS: Bones/joints: There is normal anatomic alignment of the lumbosacral spine. There is moderate chronic degenerative disc disease at L5-S1 which appears relatively stable when compared to the June 2022 exam. No evidence of a lumbosacral fracture. Soft tissues: Unremarkable. Intraperitoneal space: Multiple surgical clips and suture line is seen over the upper abdomen as well as in the pelvis. Gastrointestinal tract: Suspected rectosigmoid constipation suspected. XR/XR lumbar spine 2-3V* [id number] IMPRESSION: 1. Relatively stable chronic degenerative disc disease at L5-S1. No evidence of an acute lumbosacral bony abnormality. If clinical concern persists consider MRI evaluation. 2. Suspected rectosigmoid constipation.
== END 2024-08-24 16:02 | disposition home or self-care (01) ==
PROVIDERS: PCP Family Medicine; Visit Provider Family Medicine
DX: M51.360 Other intervertebral disc degeneration, lumbar region with discogenic back pain only (principal)
CPT/HCPCS: 72100

== ENCOUNTER 2024-09-11 14:30 | Outpatient (CLI) | payer OTHER, SELFPAY ==
--- NOTE | 2024-09-11 14:33 | US_ITS ---
WS: [id number] THYROID ULTRASOUND HISTORY: THYROID NODULE COMPARISON: 09/20/2023, 07/02/2022 Right lobe: 1.8 cm x 1.4 cm x 5.0 cm (w x ap x l). Volume: 6.1 cm3. Mildly enlarged thyroid. Multiple cystic and partially cystic nodules are identified. These appear to be colloid cysts. No new or enlarging solid mass. Previously described mid thyroid nodule which was the most solid has become more cystic. Left lobe: 1.5 cm x 1.8 cm x 4.8 cm (w x ap x l). Volume: 6.3 cm3. Mildly enlarged gland with scattered colloid cysts. No solid mass or increasing mass. Isthmus: 0.2 cm. US/US thyroid [id number] IMPRESSION: 1. Bilateral colloid cystic masses within each thyroid lobe. No solid or suspi cious mass. 2. TI-RADS 2; no FNA recommended.
== END 2024-09-11 14:32 | disposition home or self-care (01) ==
PROVIDERS: PCP Family Medicine; Visit Provider Family Medicine
DX: E04.2 Nontoxic multinodular goiter
CPT/HCPCS: 76536

== ENCOUNTER 2024-09-12 07:22 | Oncology outpatient (recurring) (ONCR) | payer OTHER, SELFPAY ==
[2024-08-24 14:31] LABS: Eosinophils # 0.1 10^3/uL (0.0-0.8); Eosinophils % 2.9 %; Hematocrit 40.3 % (36-47); Lymphocytes # 1.5 10^3/uL (0.8-4.8); Lymphocytes % 49.8 %; Mean Corpuscular Hemoglobin 32.9 pg (27-33); Mean Corpuscular Volume 102.8 fl (85-98); Mean Platelet Volume 9.3 fL (7.4-10.4); Monocytes # 0.2 10^3/uL (0.2-0.9); Monocytes % 7.8 %; Neutrophils # 1.18 10^3/uL (1.8-7.7); Neutrophils % 38.2 %; Nucleated Red Blood Cells % 0 %; Platelet Count 263 10^3/cmm (157-399); Red Blood Count 3.92 10^6/uL (3.85-5.65); Red Cell Distribution Width 12.1 % (12.1-15.1); White Blood Count 3.09 10^3/uL (3.29-11.43)
[2024-08-24 15:13] LABS: Free T4 Free Thyroxine 1.11 ng/dL (0.82-1.77); Magnesium 2.2 mg/dL (1.7-2.3)
[2024-08-24 15:59] LABS: Vitamin B12 1601 pg/mL (232-1245)
[2024-09-12 08:32] LABS: LAB Peripheral Smear Sent for Review
[2024-09-12 09:04] LABS: Folate Level 12.5 ng/mL (4.8-37.3)
[2024-09-16 17:59] LABS: Estrogens Total 362 pg/mL
== END 2024-09-12 23:59 | disposition home or self-care (01) ==
PROVIDERS: PCP Family Medicine; Visit Provider Family Medicine
DX: Z78.0 Asymptomatic menopausal state; Z53.9 Procedure and treatment not carried out, unspecified reason; D75.89 Other specified diseases of blood and blood-forming organs
CPT/HCPCS: 36415; 80503; 82607; 82672; 82746; 83735; 84144; 84439; 84443; 85025

== ENCOUNTER 2024-11-21 15:22 | Outpatient (CLI) | payer SELFPAY ==
[2024-11-21 16:42] LABS: HF Add Manual Diff No
[2024-11-21 16:44] LABS: Basophils % 0.4 %; Eosinophils # 0.1 10^3/uL (0.0-0.8); Eosinophils % 1.7 %; Hematocrit 38.5 % (36-47); Lymphocytes # 1.6 10^3/uL (0.8-4.8); Lymphocytes % 33.4 %; Mean Corpuscular Hemoglobin 33.7 pg (27-33); Mean Corpuscular Volume 102.1 fl (85-98); Mean Platelet Volume 9.4 fL (7.4-10.4); Monocytes # 0.3 10^3/uL (0.2-0.9); Monocytes % 6.4 %; Neutrophils # 2.79 10^3/uL (1.8-7.7); Neutrophils % 57.9 %; Nucleated Red Blood Cells % 0 %; Platelet Count 258 10^3/cmm (157-399); Red Blood Count 3.77 10^6/uL (3.85-5.65); White Blood Count 4.82 10^3/uL (3.29-11.43)
[2024-11-21 17:10] LABS: Alanine Aminotransferase 10 U/L (0-33); Albumin Level 4.4 g/dL (3.5-5.2); Alkaline Phosphatase 65 U/L (35-105); Anion Gap 14.8 (5-19); Aspartate Amino Transferase 19 U/L (0-32); Blood Urea Nitrogen 17 mg/dL (6-20); Calcium 9.5 mg/dL (8.5-10.5); Carbon Dioxide 27 mmol/L (22-29); Chloride 104 mmol/L (98-107); Chol HDL Ratio 1.72 mg/dL (0.0-4.40); Cholesterol 201 mg/dL (0-200); Globulin 2.9 g/dL (1.3-4.6); Glomerular Filtration Rate 86.9 mL/min (90-130); Glucose 108 mg/dL (65-115); HDL Cholesterol 117 mg/dL (60-100); LDL Cholesterol Calculated 62 mg/dL (50-129); LDL HDL Ratio 0.53 RATIO (0.00-3.22); Osmolality Calculated 294 mOsm/kg (285-295); Potassium 4.8 mmol/L (3.5-5.1); Sodium 141 mmol/L (136-145); Thyroid Stimulating Hormone 0.51 uIU/mL (0.27-4.20); Total Bilirubin 0.2 mg/dL (0.15-1.2); Total Protein 7.3 g/dL (6.6-8.7); Triglycerides 109 mg/dL (0-150)
[2024-11-21 17:17] LABS: Estmated Average Glucose 94; Hemoglobin A1C 4.9 % (4.0-6.0)
[2024-11-21 17:52] LABS: 25 Hydroxy Vitamin D 42 ng/mL (30-100)
== END 2024-11-21 15:23 | disposition home or self-care (01) ==
PROVIDERS: PCP Family Medicine; Visit Provider Dermatology
DX: Z01.89 Encounter for other specified special examinations (principal)

== ENCOUNTER 2024-11-21 15:40 | Oncology outpatient (recurring) (ONCR) | payer SELFPAY | END 2024-11-21 23:59 | disposition home or self-care (01) | PROVIDERS: PCP Family Medicine; Visit Provider Dermatology | DX: Z53.9 Procedure and treatment not carried out, unspecified reason (principal) ==

== ENCOUNTER 2024-11-23 15:08 | Oncology outpatient (recurring) (ONCR) | payer OTHER, SELFPAY ==
--- NOTE | 2024-11-23 15:20 | MM_ITS ---
WS: [email or web address] BILATERAL SCREENING DIGITAL TOMOSYNTHESIS MAMMOGRAM WITH CAD HISTORY: Z12.31 - Encounter for screening mammogram for malignant ... COMPARISON: 08/09/2023, 04/18/2015, 05/04/2024, 09/27/2023 Bilateral CC and MLO views with tomosynthesis and synthetic mammography submitted. Computer aided detection analyzed. Breast composition: The breasts are extremely dense, which lowers the sensitivity of mammography. No suspicious masses, microcalcifications or architectural distortion. Breasts are very dense with bilateral asymmetries and calcifications. Majority of the calcifications are coarse. There are a few small round calcifications in the upper outer quadrant of the LEFT breast for which biopsy has been performed. Calcifications have slightly increased in density but there is no branching of calcification or pleomorphism. The marked density and asymmetry appears stable. MM/MM [facility] tomosynthesis [id number] IMPRESSION: BI-RADS: 2 - Benign FOLLOW UP: 1 Year Follow-up
== END 2024-12-11 23:59 | disposition home or self-care (01) ==
LOC: RAD 15:11 → ONCMED 11-27 09:15
PROVIDERS: PCP Family Medicine; Visit Provider Nurse Practitioner Women's Health
DX: Z12.31 Encounter for screening mammogram for malignant neoplasm of breast (principal); R92.343 Mammographic extreme density, bilateral breasts
CPT/HCPCS: 77063; 77067

== ENCOUNTER 2025-05-24 13:32 | Outpatient (CLI) | payer SELFPAY ==
[2025-05-24 14:22] LABS: HF Add Manual Diff No
[2025-05-24 14:27] LABS: Hematocrit 37.2 % (36-47); Hemoglobin 12.20 g/dL (11.27-16.99); Mean Corpuscular HGB Conc 32.8 g/dL (30-55); Mean Corpuscular Hemoglobin 32.9 pg (27-33); Mean Corpuscular Volume 100.3 fl (85-98); Nucleated Red Blood Cells % 0 %; Platelet Count 228 10^3/cmm (157-399); Red Blood Count 3.71 10^6/uL (3.85-5.65); White Blood Count 3.88 10^3/uL (3.29-11.43)
[2025-05-24 14:52] LABS: Estmated Average Glucose 100; Hemoglobin A1C 5.1 % (4.0-6.0)
[2025-05-24 15:06] LABS: Alanine Aminotransferase 11 U/L (0-33); Albumin Level 4.1 g/dL (3.5-5.2); Alkaline Phosphatase 59 U/L (35-105); Anion Gap 14.1 (5-19); Aspartate Amino Transferase 19 U/L (0-32); Blood Urea Nitrogen 9 mg/dL (6-20); Calcium 9.3 mg/dL (8.5-10.5); Carbon Dioxide 27 mmol/L (22-29); Chloride 102 mmol/L (98-107); Cholesterol 178 mg/dL (0-200); Globulin 2.9 g/dL (1.3-4.6); Glucose 92 mg/dL (65-115); HDL Cholesterol 101 mg/dL (60-100); Osmolality Calculated 286 mOsm/kg (285-295); Potassium 4.1 mmol/L (3.5-5.1); Sodium 139 mmol/L (136-145); Thyroid Stimulating Hormone 0.90 uIU/mL (0.27-4.20); Total Protein 7.0 g/dL (6.6-8.7); Triglycerides 73 mg/dL (0-150)
== END 2025-05-24 13:33 | disposition home or self-care (01) ==
PROVIDERS: PCP Family Medicine; Visit Provider Dermatology
DX: Z01.89 Encounter for other specified special examinations (principal)
CPT/HCPCS: 36415